=== PATIENT | female | born 1990 | race Caucasian/White ===

== ENCOUNTER 2020-01-24 08:51 | Outpatient (RCR) | payer OTHER ==
[2020-01-24] VITALS (10 sets, daily range): BP systolic 132–175; BP diastolic 60–111; PULSE 85–96; TEMP 97.5–99
[~2020-01-24] VITALS: Ht 175.3 cm; Wt 119.5 kg
--- NOTE | 2020-01-24 09:00 | NUR ---
Pt here for NST for twin gestation and increased BP. 35.3 weeks gestation. Pt to EFM, explained. Baby A vertex to left lower abd. Baby B breech to right upper abd. Initial BP 183/104 and repeat 172/88. 0932:Dr Rodriguez here and at bedside. Will check labs and UA and continue to monitor at this time.
[2020-01-24] MEDS ORDERED: PRENATAL PO (09:17)
[2020-01-24] MEDS ORDERED: ZYRTEC 10MG10 MG PO (09:18)
[2020-01-24 10:05] LABS: BASO # 0.1 (0.0-0.2); BASO % 0.5 % (0.0-2.0); EOS # 0.1 (0.0-0.7); EOS % 0.9 % (0-4.0); GRAN % 74.3 % (42.2-75.2); LYMPH # 1.8 (1.2-3.4); LYMPH % 16.7 % (20.0-51.0); MEAN CELL VOLUME 88 fl (80.0-100.0); MEAN CORPUSCULAR HEMOGLOBIN 30 pg (27.0-31.0); MEAN CORPUSCULAR HGB CONC 34 g/dl (33.0-37.0); MEAN PLATELET VOLUME 12.8 fl (7.4-10.4); MONO # 0.7 (0.1-0.6); MONO % 6.7 % (1.7-9.3); PLATELET COUNT 182 K/mm3 (130-400); RED BLOOD COUNT 4.04 M/mm3 (4.10-5.30); REDCELL DISTRIBUTION WIDTH-CV 14.9 % (11.5-14.5)
[2020-01-24 10:10] LABS: ALBUMIN 3.4 gm/dL (3.5-5.0); BILIRUBIN,TOTAL 0.4 mg/dL (0.0-1.0); CALCIUM 9.8 mg/dL (8.4-10.2); CREATININE, serum 0.5 (0.52-1.25); POTASSIUM 4.1 mmol/L (3.4-5.0); TOTAL PROTEIN 6.6 gm/dL (6.4-8.2)
--- NOTE | 2020-01-24 10:22 | NUR ---
Pt up bathroom, voids for UA. 1040:Dr Rodriguez called. See physician notification.
[2020-01-24 10:27] LABS: HEMATOCRIT 35.6 % (37.0-47.0)
[2020-01-24 10:33] LABS: COLLECTION METHOD CLEAN CATCH
[2020-01-24 10:49] LABS: PH 7 (5-8); SQUAMOUS EPITHELIAL 0-2 /hpf; URINE APPEARANCE Clear; URINE BACTERIA Rare /hpf; URINE BILIRUBIN Negative (NEGATIVE); URINE BLOOD Negative (NEGATIVE); URINE COLOR Straw; URINE GLUCOSE Negative (NEGATIVE); URINE KETONE Negative (NEGATIVE); URINE LEUKOCYTE ESTERASE Negative (NEGATIVE); URINE NITRATE Negative (NEGATIVE); URINE PROTEIN(semi-quant) Negative (NEGATIVE); URINE RBC 0-2 /hpf; URINE UROBILINOGEN Negative (NEGATIVE); URINE WBC 0-2 /hpf
--- NOTE | 2020-01-24 11:07 | NUR ---
IV started per Jeff RN to left hand. LR infusing. Labetolol given IV. See EMAR. Baby A and Baby B reactive. Pt having irregular contractions, denies feeling them. Pt denies having and headache or visual disturbances. Requesting to talk to Dr Rodriguez. Assessment complete and consents signed. 1130:BP 158/88. 1150:Dr Rodriguez called and on his way. Will discuss plan of care with pt and .
[2020-01-25] MEDS ORDERED: IBU600 MG PO (08:43)
[2020-01-25] MEDS ORDERED: ADALAT CC60 MG PO (08:43)
[2020-01-25] MEDS ORDERED: PERCOCET 325 MG1 TA2 PO (08:43)
== END 2020-01-24 12:00 | disposition home or self-care (01) ==
LOC: LDRO 08:51
PROVIDERS: Obstetrics & Gynecology
DX: O30.003 Twin pregnancy, unspecified number of placenta and unspecified number of amniotic sacs, third trimester (principal); Z3A.35 35 weeks gestation of pregnancy
CPT/HCPCS: J7120

== ENCOUNTER 2020-01-24 11:00 | Inpatient (IN) | payer OTHER ==
[2020-01-24] VITALS (21 sets, daily range): BP systolic 123–183; BP diastolic 63–104; PULSE 61–90; TEMP 97.7–98
[~2020-01-24] VITALS: Ht 175.3 cm; Wt 119.5 kg
[~2020-01-24 11:00] MED LIST: PRENATAL PO; ZYRTEC 10MG10 MG PO
--- NOTE | 2020-01-24 12:00 | NUR ---
1200-Recieved report from Dwight,RN. Patient in room with IVF to Left hand. EFM in place tracing reactive FHR for baby A in the left lower abdoment and baby B in the Right upper abdomen. [facility] tracing irregular contractions. Maternal BP elevated, see flow record. Dr. Rodriguez in route to hospital to discuss plan of care with patient. 1230-Dr. Rodriguez and patient plan for primary c/s. Consents reviewed and signed. Mons pubis trimmed, abdoemn cleansed per protocol. 1315-Patient off EFM ambulatory to OR with , Didier.
--- NOTE | 2020-01-24 14:35 | NUR ---
1435-Patient taken to PACU via bed. VSS, Patient A&O x 4, Recieved report from MECHE Vergara. IVF to left hand, terry to DD, clear yellow urine. Fundal massage rob roberto WNL, Updated patient on plan of care. Remained with patient in PACU per protocol. 1505-Patient taken to room 220 via bed. Patient remains A&O. VSS. Oriented to room. Updated on plan of care. 1600-Dr. Rodriguez in to see patient. Reviews recover VSS, BP 161/95 at this time. Orders to update with VS after 30 min 1645-Dr. Rodriguez notified of patients recover vss, see recovery flow record. Orders recived to start 60mg Porcardia XL now and daily at 0900, see EMAR.
[2020-01-25 02:10] VITALS: BP 136/70; PULSE 75; TEMP 97.7
[2020-01-25 07:45] VITALS: BP 144/73; PULSE 87; TEMP 98.1
[2020-01-25] MEDS ORDERED: IBU600 MG PO (08:43)
[2020-01-25] MEDS ORDERED: ADALAT CC60 MG PO (08:43)
[2020-01-25] MEDS ORDERED: PERCOCET 325 MG1 TA2 PO (08:43)
[2020-01-25 12:40] VITALS: BP 140/87; PULSE 83; TEMP 98.2
[2020-01-25 15:30] VITALS: BP 152/96; PULSE 87; TEMP 97.8
[2020-01-25 19:30] VITALS: BP 151/89; PULSE 84; TEMP 97.9
[2020-01-25 21:30] VITALS: BP 155/85; PULSE 82
[2020-01-26 03:00] VITALS: BP 148/84; PULSE 93; TEMP 97.7
[2020-01-26 07:00] VITALS: BP 139/88; PULSE 86; TEMP 98.6
[2020-01-26 11:30] VITALS: BP 161/98; PULSE 102; TEMP 98.3
[2020-01-26 13:30] VITALS: BP 149/90; PULSE 93; TEMP 97.6
[2020-01-26 16:00] VITALS: BP 169/99; PULSE 93; TEMP 97.9
--- NOTE | 2020-01-26 16:26 | NUR ---
Updated Dr. Rodriguez who is on unit of patients elevated BP today, see flow record. Order to give Procardia 30mg XL now and change daily dose starting in am to Procardia 90mg XL.
[2020-01-26 20:20] VITALS: BP 159/99; PULSE 100; TEMP 98.2
[2020-01-27 02:15] VITALS: BP 141/81; PULSE 96
[2020-01-27 08:26] VITALS: BP 147/83; PULSE 94; TEMP 97.8
[2020-01-27 16:30] VITALS: BP 155/95; PULSE 105; TEMP 98
[2020-01-27 19:20] VITALS: BP 160/94; PULSE 96; TEMP 97.5
[2020-01-27 20:10] VITALS: BP 157/93; PULSE 97
[2020-01-27 23:10] VITALS: BP 138/80; PULSE 96
[2020-01-28 03:05] VITALS: BP 140/83; PULSE 106; TEMP 97.2
[2020-01-28 08:24] VITALS: BP 148/86; PULSE 95; TEMP 97.8
[2020-01-28] MEDS ORDERED: TRANDATE 100MG100 MG PO (10:28)
[2020-01-28] MEDS ORDERED: ADALAT CC60 MG PO (10:28)
[2020-01-28 16:00] VITALS: BP 145/90; PULSE 90; TEMP 98
[2020-01-28 16:05] VITALS: BP 151/90
[2020-01-28 19:11] VITALS: BP 134/74; PULSE 95; TEMP 97.6
[2020-01-28 23:59] VITALS: BP 128/76; PULSE 95; TEMP 97.6
[2020-01-29 05:59] VITALS: BP 133/80; PULSE 90
[2020-01-29 08:15] VITALS: BP 155/88; PULSE 104
[2020-01-29 09:50] VITALS: BP 143/81; PULSE 101; TEMP 97.9
[2020-01-29 12:30] VITALS: BP 137/74; PULSE 99
== END 2020-01-29 16:45 | disposition home or self-care (01) | DRG 787 ==
LOC: LDR 11:00 → OB 11:00
PROVIDERS: ADMIT Obstetrics & Gynecology
PROC: 10D00Z1 Extraction of Products of Conception, Low, Open Approach (ICD-10-PCS; principal; 2020-01-24)
DX: O14.13 Severe pre-eclampsia, third trimester (principal); O99.354 Diseases of the nervous system complicating childbirth; O30.043 Twin pregnancy, dichorionic/diamniotic, third trimester; O99.214 Obesity complicating childbirth; O32.1XX1 Maternal care for breech presentation, fetus 1; O32.1XX2 Maternal care for breech presentation, fetus 2; O99.52 Diseases of the respiratory system complicating childbirth; J30.2 Other seasonal allergic rhinitis; G43.909 Migraine, unspecified, not intractable, without status migrainosus; Z3A.35 35 weeks gestation of pregnancy; Z37.2 Twins, both liveborn
CPT/HCPCS: J0690; J1885; J2270; J2370; J2405; J2590; J2791; J7120

== ENCOUNTER → 2020-02-20 | Outpatient (CLI) | payer OTHER ==
[~2020-02-20] MED LIST changes: +ADALAT CC60 MG PO; +IBU600 MG PO; +PERCOCET 325 MG1 TA2 PO; +TRANDATE 100MG100 MG PO
--- NOTE | 2020-02-20 16:49 | NUR ---
Pt, Maryam Jordan, presents for outpatient consult with twin boys, Avi and Kendrick Jordan, and her spouse, Didier. Pt has concerns about low milk supply and latching. Avi and Kendrick were born on [birth year] by c/section at 35.3 weeks gestation because pt had onset of hypertension. At Avi weighed 6#0.3oz (2730 gms), today he weighs 8#8.6oz (3872gms). He nursed about 20 minutes here, after LC assisted with latch and had no change in weight after nursing. He was then bottle fed about 100ml formula. Kendrick weighed 6#6.3oz (2900 gms) at and today he weighs 8#7.7oz (3848 gms). After about 20 minutes of nursing he had a gain of 8gms. He drank about 70ml formula by bottle after . Pt reports each baby is drinking 2-3.5oz EBM or formula 8-9 times per day. She is collecting about 2.5oz x 7 pumpings per day. reviews with pt possible reasons for low milk supply. Other than gestational hypertension, which she is taking medication for, there does not seem to be a distinct reason for low milk volume. Pt does have large nipples, currently using 30mm mars but abrassions are noted at the nipple and areola junction. She will try 36mm mars and 27mm mars to see if the fit improves and allows for better milk flow and decrease rubbing on the tissue. POC: Continue pumping and . F/U: As needed. Questions invited and answered.
--- NOTE | 2020-02-20 17:08 | NUR ---
See notes on previous intervtions documentation.
== END ==
LOC: OLC 14:05
DX: Z39.1 Encounter for care and examination of lactating mother (principal); Z71.89 Other specified counseling